=== PATIENT | male | born 1970 | race African-American/Black ===

== ENCOUNTER 2022-06-03 11:02 | Inpatient (IN) | payer OTHER ==
[2022-06-03 11:34] VITALS: BMI 23.2
[2022-06-03] MEDS ORDERED: BENZONATATE 200 MG CAPSULE PO PRN (19:18)
[2022-06-03] MEDS ORDERED: BENZOCAINE/MENTHOL (CHLORASEPTIC ) LOZENGE MM PRN (19:18)
[2022-06-03] MEDS ORDERED: NALOXONE HCL 0.4 MG/ML VIAL IM PRN (19:18)
[2022-06-03] MEDS ORDERED: MAG HYDROX/AL HYDROX/SIMETH 30 ML UNIT-DOSE CUP PO PRN (19:18)
[2022-06-03] MEDS ORDERED: guaiFENesin 600 MG TABLET.ER (FP) PO PRN (19:18)
[2022-06-03] MEDS ORDERED: MAGNESIUM HYDROX 2400MG/30ML ORAL SUSPENSION 30 ML CUP PO PRN (19:18)
[2022-06-03] MEDS ORDERED: POLYETHYLENE GLYCOL (HEALTHYLAX) 3350 17 GM PACKET PO PRN (19:18)
[2022-06-03] MEDS ORDERED: NALOXONE HCL (KLOXXADO) 8 MG SPRAY NS PRN (19:18)
[2022-06-03] MEDS: hydrOXYzine PAMOATE 25 MG CAPSULE (FP) PO PRN (21:18)
[2022-06-03] MEDS: MELATONIN 5 MG TABLETS PO SCH (21:18)
[2022-06-03] MEDS: THIAMINE HCL 100 MG TABLET (FP) PO SCH (21:18)
[2022-06-03] MEDS ORDERED: TUBERCULIN PPD 5 TU/0.1ML VIAL ID ONE (22:28)
[2022-06-04] MEDS: PRENATAL VITAMINS W/ FOLIC ACID TABLET (FP) PO SCH (11:19)
[2022-06-04] MEDS: NICOTINE 21 MG/24 HOURS TOPICAL PATCH TD SCH (11:19)
[2022-06-04] MEDS: NICOTINE 10 MG CARTRIDGE (INHALER) IH PRN (11:20)
[2022-06-04 12:18] LABS: HEMATOCRIT 36.9 % (35.4-49); HEMOGLOBIN 12.4 GM/dL (11.7-16.9); MCH 29.7 pg (25.7-33.7); MCHC 33.7 g/dl (32.0-35.9); MEAN CELL VOLUME 88.2 fl (80-96); MEAN PLT VOLUME 8.6 fl (7.5-11.1); PLATELET COUNT 254 10^3/uL (134-434); RBC 4.18 M/mm3 (4.00-5.60); RDW 15.6 % (11.9-15.9); WHITE BLOOD COUNT 8.1 K/mm3 (4.0-10.0)
[2022-06-04 12:34] LABS: CALCIUM 9.1 mg/dL (8.5-10.1)
[2022-06-04 12:35] LABS: ALBUMIN 3.1 g/dl (3.4-5.0); BLOOD UREA NITROGEN 15.3 mg/dL (7-18)
[2022-06-04 12:38] LABS: CREATININE 0.9 mg/dL (0.55-1.3)
[2022-06-04 12:39] LABS: TOT PROT 6.2 g/dl (6.4-8.2)
[2022-06-04 12:40] LABS: BILIRUBIN,TOTAL 0.3 mg/dL (0.2-1)
[2022-06-04 13:44] LABS: PH,URINE 5.5 (5.0-8.0); URINE APPEARANCE CLEAR; URINE BILIRUBIN NEGATIVE (NEGATIVE); URINE COLOR YELLOW; URINE GLUCOSE (UA) NEGATIVE (NEGATIVE); URINE KETONE NEGATIVE (NEGATIVE); URINE LEUK ESTERASE NEGATIVE (NEGATIVE); URINE NITRITE NEGATIVE (NEGATIVE); URINE PROTEIN NEGATIVE (NEGATIVE); URINE UROBILINOGEN 0.2 mg/dL (0.2-1.0)
[2022-06-04] MEDS: IBUPROFEN 400 MG TABLET (FP) PO PRN (13:50)
[2022-06-04] MEDS: LOPERAMIDE HCL 2 MG CAPSULE PO PRN (13:50)
[2022-06-04] MEDS: hydrOXYzine PAMOATE 25 MG CAPSULE (FP) PO PRN ×2 (13:50→21:32)
[2022-06-04] MEDS: cloNIDine HCL 0.1 MG TABLET PO PRN (21:32)
[2022-06-04] MEDS: BACLOFEN 10 MG TABLET (FP) PO PRN (21:32)
[2022-06-04] MEDS: THIAMINE HCL 100 MG TABLET (FP) PO SCH (21:32)
[2022-06-04] MEDS: MELATONIN 5 MG TABLETS PO SCH (21:33)
[2022-06-04] MEDS: MIRTAZAPINE 15 MG TABLET (FP) PO SCH (21:36)
[2022-06-04] MEDS ORDERED: MIRTAZAPINE 30 MG TABLET PO SCH (22:00)
[2022-06-04] MEDS: DIVALPROEX SODIUM 250 MG TABLET E.C. PO SCH (22:35)
[2022-06-05] MEDS: LOPERAMIDE HCL 2 MG CAPSULE PO PRN (06:27)
[2022-06-05] MEDS: DIVALPROEX SODIUM 250 MG TABLET E.C. PO SCH ×2 (09:08→21:06)
[2022-06-05] MEDS: PRENATAL VITAMINS W/ FOLIC ACID TABLET (FP) PO SCH (09:08)
[2022-06-05] MEDS: NICOTINE 21 MG/24 HOURS TOPICAL PATCH TD SCH (09:12)
[2022-06-05] MEDS: BACLOFEN 10 MG TABLET (FP) PO PRN ×2 (09:12→21:05)
[2022-06-05] MEDS: cloNIDine HCL 0.1 MG TABLET PO PRN ×2 (09:12→21:05)
[2022-06-05] MEDS ORDERED: ONDANSETRON *ODT* 4 MG TABLET SL PRN (14:38)
[2022-06-05] MEDS ORDERED: DIPHENOXYLATE 2.5/ATROPINE.025 1 COMBO TABLET PO PRN (14:47)
[2022-06-05] MEDS: NICOTINE 10 MG CARTRIDGE (INHALER) IH PRN (21:05)
[2022-06-05] MEDS: THIAMINE HCL 100 MG TABLET (FP) PO SCH (21:05)
[2022-06-05] MEDS: hydrOXYzine PAMOATE 25 MG CAPSULE (FP) PO PRN (21:05)
[2022-06-05] MEDS: MIRTAZAPINE 15 MG TABLET (FP) PO SCH (21:06)
[2022-06-05] MEDS: MELATONIN 5 MG TABLETS PO SCH (21:06)
[2022-06-06] MEDS: NICOTINE 21 MG/24 HOURS TOPICAL PATCH TD SCH (09:58)
[2022-06-06] MEDS: DIVALPROEX SODIUM 250 MG TABLET E.C. PO SCH ×2 (09:58→21:19)
[2022-06-06] MEDS: PRENATAL VITAMINS W/ FOLIC ACID TABLET (FP) PO SCH (09:58)
[2022-06-06] MEDS: BACLOFEN 10 MG TABLET (FP) PO PRN (21:19)
[2022-06-06] MEDS: hydrOXYzine PAMOATE 25 MG CAPSULE (FP) PO PRN (21:19)
[2022-06-06] MEDS: MIRTAZAPINE 15 MG TABLET (FP) PO SCH (21:19)
[2022-06-06] MEDS: MELATONIN 5 MG TABLETS PO SCH (21:19)
[2022-06-06] MEDS: THIAMINE HCL 100 MG TABLET (FP) PO SCH (21:19)
[2022-06-07] MEDS: DIVALPROEX SODIUM 250 MG TABLET E.C. PO SCH ×2 (09:48→21:07)
[2022-06-07] MEDS: NICOTINE 10 MG CARTRIDGE (INHALER) IH PRN (09:48)
[2022-06-07] MEDS: PRENATAL VITAMINS W/ FOLIC ACID TABLET (FP) PO SCH (09:48)
[2022-06-07] MEDS: NICOTINE 21 MG/24 HOURS TOPICAL PATCH TD SCH (09:48)
[2022-06-07] MEDS: NICOTINE POLACRILEX 2 MG GUM BC PRN (09:50)
[2022-06-07] MEDS: ACETAMINOPHEN 325 MG TABLET (FP) PO PRN (17:40)
[2022-06-07] MEDS: THIAMINE HCL 100 MG TABLET (FP) PO SCH (21:06)
[2022-06-07] MEDS: MELATONIN 5 MG TABLETS PO SCH (21:06)
[2022-06-07] MEDS: BACLOFEN 10 MG TABLET (FP) PO PRN (21:07)
[2022-06-07] MEDS: MIRTAZAPINE 15 MG TABLET (FP) PO SCH (21:07)
[2022-06-08] MEDS: cloNIDine HCL 0.1 MG TABLET PO PRN (09:46)
[2022-06-08] MEDS: PRENATAL VITAMINS W/ FOLIC ACID TABLET (FP) PO SCH (09:46)
[2022-06-08] MEDS: DIVALPROEX SODIUM 250 MG TABLET E.C. PO SCH ×2 (09:46→21:08)
[2022-06-08] MEDS: NICOTINE 21 MG/24 HOURS TOPICAL PATCH TD SCH (09:47)
[2022-06-08] MEDS: IBUPROFEN 400 MG TABLET (FP) PO PRN ×2 (09:48→21:09)
[2022-06-08] MEDS: NICOTINE 10 MG CARTRIDGE (INHALER) IH PRN (09:49)
[2022-06-08] MEDS: NICOTINE POLACRILEX 2 MG GUM BC PRN (09:49)
[2022-06-08] MEDS: THIAMINE HCL 100 MG TABLET (FP) PO SCH (21:08)
[2022-06-08] MEDS: MELATONIN 5 MG TABLETS PO SCH (21:08)
[2022-06-08] MEDS: BACLOFEN 10 MG TABLET (FP) PO PRN (21:08)
[2022-06-08] MEDS: MIRTAZAPINE 15 MG TABLET (FP) PO SCH (21:08)
[2022-06-09] MEDS: PRENATAL VITAMINS W/ FOLIC ACID TABLET (FP) PO SCH (09:54)
[2022-06-09] MEDS: DIVALPROEX SODIUM 250 MG TABLET E.C. PO SCH ×2 (09:54→21:08)
[2022-06-09] MEDS: NICOTINE 21 MG/24 HOURS TOPICAL PATCH TD SCH (09:54)
[2022-06-09] MEDS: NICOTINE 10 MG CARTRIDGE (INHALER) IH PRN (09:55)
[2022-06-09] MEDS: cloNIDine HCL 0.1 MG TABLET PO PRN (21:08)
[2022-06-09] MEDS: MELATONIN 5 MG TABLETS PO SCH (21:08)
[2022-06-09] MEDS: hydrOXYzine PAMOATE 25 MG CAPSULE (FP) PO PRN (21:08)
[2022-06-09] MEDS: MIRTAZAPINE 15 MG TABLET (FP) PO SCH (21:08)
[2022-06-09] MEDS: BACLOFEN 10 MG TABLET (FP) PO PRN (21:08)
[2022-06-09] MEDS: THIAMINE HCL 100 MG TABLET (FP) PO SCH (21:09)
[2022-06-09] MEDS: ACETAMINOPHEN 325 MG TABLET (FP) PO PRN (21:09)
[2022-06-10] MEDS: PRENATAL VITAMINS W/ FOLIC ACID TABLET (FP) PO SCH (09:55)
[2022-06-10] MEDS: NICOTINE 21 MG/24 HOURS TOPICAL PATCH TD SCH (09:55)
[2022-06-10] MEDS: DIVALPROEX SODIUM 250 MG TABLET E.C. PO SCH ×2 (09:55→21:20)
[2022-06-10] MEDS: NICOTINE 10 MG CARTRIDGE (INHALER) IH PRN (09:55)
[2022-06-10] MEDS: IBUPROFEN 600 MG TABLET (FP) PO PRN (21:18)
[2022-06-10] MEDS: MELATONIN 5 MG TABLETS PO SCH (21:18)
[2022-06-10] MEDS: THIAMINE HCL 100 MG TABLET (FP) PO SCH (21:18)
[2022-06-10] MEDS: MIRTAZAPINE 15 MG TABLET (FP) PO SCH (21:19)
[2022-06-10] MEDS: BACLOFEN 10 MG TABLET (FP) PO PRN (21:19)
[2022-06-10] MEDS: hydrOXYzine PAMOATE 25 MG CAPSULE (FP) PO PRN (21:19)
[2022-06-10] MEDS: cloNIDine HCL 0.1 MG TABLET PO PRN (21:19)
[2022-06-11] MEDS: DIVALPROEX SODIUM 250 MG TABLET E.C. PO SCH ×2 (09:45→21:17)
[2022-06-11] MEDS: NICOTINE 10 MG CARTRIDGE (INHALER) IH PRN (09:46)
[2022-06-11] MEDS: NICOTINE 21 MG/24 HOURS TOPICAL PATCH TD SCH (10:45)
[2022-06-11] MEDS: PRENATAL VITAMINS W/ FOLIC ACID TABLET (FP) PO SCH (10:45)
[2022-06-11] MEDS: cloNIDine HCL 0.1 MG TABLET PO PRN (21:17)
[2022-06-11] MEDS: THIAMINE HCL 100 MG TABLET (FP) PO SCH (21:17)
[2022-06-11] MEDS: MIRTAZAPINE 15 MG TABLET (FP) PO SCH (21:17)
[2022-06-11] MEDS: IBUPROFEN 600 MG TABLET (FP) PO PRN (21:17)
[2022-06-11] MEDS: MELATONIN 5 MG TABLETS PO SCH (21:19)
[2022-06-12] MEDS: NICOTINE 21 MG/24 HOURS TOPICAL PATCH TD SCH (09:46)
[2022-06-12] MEDS: DIVALPROEX SODIUM 250 MG TABLET E.C. PO SCH ×2 (09:47→21:36)
[2022-06-12] MEDS: NICOTINE 10 MG CARTRIDGE (INHALER) IH PRN (09:47)
[2022-06-12] MEDS: PRENATAL VITAMINS W/ FOLIC ACID TABLET (FP) PO SCH (09:47)
[2022-06-12] MEDS: hydrOXYzine PAMOATE 25 MG CAPSULE (FP) PO PRN (21:36)
[2022-06-12] MEDS: MELATONIN 5 MG TABLETS PO SCH (21:36)
[2022-06-12] MEDS: cloNIDine HCL 0.1 MG TABLET PO PRN (21:36)
[2022-06-12] MEDS: MIRTAZAPINE 15 MG TABLET (FP) PO SCH (21:36)
[2022-06-12] MEDS: THIAMINE HCL 100 MG TABLET (FP) PO SCH (21:36)
[2022-06-12] MEDS: BACLOFEN 10 MG TABLET (FP) PO PRN (21:36)
[2022-06-13] MEDS: PRENATAL VITAMINS W/ FOLIC ACID TABLET (FP) PO SCH (09:52)
[2022-06-13] MEDS: DIVALPROEX SODIUM 250 MG TABLET E.C. PO SCH ×2 (09:52→21:18)
[2022-06-13] MEDS: NICOTINE 21 MG/24 HOURS TOPICAL PATCH TD SCH (09:53)
[2022-06-13] MEDS: NICOTINE POLACRILEX 2 MG GUM BC PRN (09:53)
[2022-06-13] MEDS: BACLOFEN 10 MG TABLET (FP) PO PRN (21:18)
[2022-06-13] MEDS: MIRTAZAPINE 15 MG TABLET (FP) PO SCH (21:18)
[2022-06-13] MEDS: cloNIDine HCL 0.1 MG TABLET PO PRN (21:18)
[2022-06-13] MEDS: MELATONIN 5 MG TABLETS PO SCH (21:18)
[2022-06-13] MEDS: hydrOXYzine PAMOATE 25 MG CAPSULE (FP) PO PRN (21:18)
[2022-06-13] MEDS: THIAMINE HCL 100 MG TABLET (FP) PO SCH (21:18)
[2022-06-13] MEDS: ACETAMINOPHEN 325 MG TABLET (FP) PO PRN (21:19)
[2022-06-14] MEDS: NICOTINE 21 MG/24 HOURS TOPICAL PATCH TD SCH (09:41)
[2022-06-14] MEDS: DIVALPROEX SODIUM 250 MG TABLET E.C. PO SCH ×2 (09:41→21:21)
[2022-06-14] MEDS: PRENATAL VITAMINS W/ FOLIC ACID TABLET (FP) PO SCH (09:42)
[2022-06-14] MEDS: MIRTAZAPINE 15 MG TABLET (FP) PO SCH (21:21)
[2022-06-14] MEDS: MELATONIN 5 MG TABLETS PO SCH (21:21)
[2022-06-14] MEDS: THIAMINE HCL 100 MG TABLET (FP) PO SCH (21:21)
[2022-06-15] MEDS: NICOTINE 10 MG CARTRIDGE (INHALER) IH PRN (09:48)
[2022-06-15] MEDS: NICOTINE 21 MG/24 HOURS TOPICAL PATCH TD SCH (09:48)
[2022-06-15] MEDS: DIVALPROEX SODIUM 250 MG TABLET E.C. PO SCH ×2 (09:49→21:29)
[2022-06-15] MEDS: PRENATAL VITAMINS W/ FOLIC ACID TABLET (FP) PO SCH (09:49)
[2022-06-15] MEDS: BACLOFEN 10 MG TABLET (FP) PO PRN (21:29)
[2022-06-15] MEDS: MELATONIN 5 MG TABLETS PO SCH (21:29)
[2022-06-15] MEDS: MIRTAZAPINE 15 MG TABLET (FP) PO SCH (21:29)
[2022-06-15] MEDS: THIAMINE HCL 100 MG TABLET (FP) PO SCH (21:29)
[2022-06-16 07:29] VITALS: BP 132/85; PULSE 86; RESP 18; TEMP 98.2
[2022-06-16] MEDS: DIVALPROEX SODIUM 250 MG TABLET E.C. PO SCH (09:05)
[2022-06-16] MEDS: NICOTINE 21 MG/24 HOURS TOPICAL PATCH TD SCH (09:06)
[2022-06-16] MEDS: PRENATAL VITAMINS W/ FOLIC ACID TABLET (FP) PO SCH (09:07)
== END 2022-06-16 09:20 | disposition home or self-care (01) | DRG 772 ==
LOC: YASAS 11:02 → Y3E 16:52
PROVIDERS: ADMIT Allergy & Immunology; ATTEND Psychiatry & Neurology Pain Medicine
PROC: HZ42ZZZ Group Counseling for Substance Abuse Treatment, Cognitive-Behavioral (ICD-10-PCS; principal; 2022-06-03)
DX: F14.20 Cocaine dependence, uncomplicated (principal); F10.10 Alcohol abuse, uncomplicated; F12.20 Cannabis dependence, uncomplicated; F17.210 Nicotine dependence, cigarettes, uncomplicated; F19.282 Other psychoactive substance dependence with psychoactive substance-induced sleep disorder; F31.9 Bipolar disorder, unspecified; M54.50 Low back pain, unspecified; G89.29 Other chronic pain; Z86.79 Personal history of other diseases of the circulatory system; Z99.89 Dependence on other enabling machines and devices
CPT/HCPCS: 36415; 80053; 80164; 81003; 85027; 86780; 86803; 87811; 93005; 93010; C9803-CS; J0475; Q0162; U0003; U0005